=== PATIENT | female | born 1965 | race Two or more races ===

== ENCOUNTER 2018-12-30 06:08 | Day surgery (SDC) | payer OTHER ==
[~2018-12-30] VITALS: Ht 162.6 cm; Wt 87.1 kg
[2018-12-30 07:01] VITALS: BP 195/96
[2018-12-30 14:28] VITALS: BP 150/91
== END 2018-12-30 10:30 | disposition home or self-care (01) ==
LOC: DS 06:08 → GI 08:00 → OR 08:00 → DS 10:30
DX: Z12.11 Encounter for screening for malignant neoplasm of colon (principal); K63.5 Polyp of colon; K57.30 Diverticulosis of large intestine without perforation or abscess without bleeding; E11.9 Type 2 diabetes mellitus without complications; E66.9 Obesity, unspecified; Z68.31 Body mass index [BMI] 31.0-31.9, adult; Z79.84 Long term (current) use of oral hypoglycemic drugs; Z79.899 Other long term (current) drug therapy; Z98.890 Other specified postprocedural states; Z87.59 Personal history of other complications of pregnancy, childbirth and the puerperium; Z80.0 Family history of malignant neoplasm of digestive organs
CPT/HCPCS: 45378; J1200; J1610; J2250; J2310; J3010; J3490